=== PATIENT | male | born 1985 | race Caucasian/White ===

== ENCOUNTER 2021-05-10 18:51 | Observation (INO) ==
[2021-05-10 22:52] VITALS: TEMP 98
[2021-05-10 23:07] VITALS: O2SAT 98
[2021-05-10] MEDS ORDERED: Ondansetron 4 MG/2 ML VIAL IVP PRN (23:33)
[2021-05-10] MEDS ORDERED: Naloxone 0.4 MG/ML INJ IVP PRN (23:33)
[2021-05-10] MEDS ORDERED: *HR* Promethazine 25 MG/ML VIAL IM PRN (23:33)
[2021-05-10] MEDS ORDERED: Melatonin 3 MG TABLET PO PRN (23:33)
[2021-05-10] MEDS ORDERED: Acetaminophen 325 MG TABLET PO PRN (23:33)
[2021-05-11 00:47] LABS: Basophils % 0.5 %; Eosinophils % 0.4 %; Hematocrit 40.5 % (37.5-50.1); Hemoglobin 13.8 g/dL (12.9-16.9); Immature Granulocytes % 0.2 % (0-4); Lymphocytes # 2.4 K/mcL (0.6-4.6); Lymphocytes % 28.5 %; Mean Corpuscular HGB Conc 34.1 g/dL (31.6-35.5); Mean Corpuscular Hemoglobin 30.3 pg (28.0-33.3); Mean Platelet Volume 9.6 fL (9.4-12.4); Monocytes # 0.5 K/mcL (0.0-1.3); Monocytes % 6.5 %; Neutrophils # 5.3 K/mcL (1.6-8.9); Platelet Count 278 K/mcL (140-400); Red Blood Count 4.55 M/mcL (4.19-5.50); Red Cell Distribution Width 12.4 % (11.5-14.5); Segmented Neutrophils % 63.9 %; White Blood Count 8.3 K/mcL (4.3-11.1)
[2021-05-11 01:18] LABS: BUN/Creatinine Ratio 12 (6-26); Blood Urea Nitrogen 11 mg/dL (6-20); Calcium 9.4 mg/dL (8.6-10.3); Carbon Dioxide 22 mEq/L (23-29); Chloride 103 mEq/L (98-107); Chol/HDL Ratio 4.2 (0-4.9); Cholesterol 189 mg/dL (< 200); Glucose 102 mg/dL (70-105); HDL Cholesterol 45 mg/dL (40-59); LDL Cholesterol,Calculated 124 mg/dL (< 100); Magnesium 1.9 mg/dL (1.6-2.6); Osmolality,Calculated 280 (280-300); Potassium 3.6 mEq/L (3.5-5.1); Sodium 135 mEq/L (136-145); Triglycerides 100 mg/dL (< 150); eGFR For African Americans > 60 (> 60); eGFR For Non-African Americans > 60 (> 60)
[2021-05-11] MEDS ORDERED: Regadenoson 0.4 MG/5 ML SYRINGE IVP ONE (06:26)
[2021-05-11] MEDS ORDERED: Aspirin Enteric Coated 81 MG Tablet PO SCH (09:00)
[2021-05-11] MEDS ORDERED: Perflutren Lipid Microsphere 1.3 ML in 0.9 % Sodium Chloride 8.7 ML IVP PRN (10:42)
[2021-05-11] MEDS ORDERED: Heparin 1,000 UNITS/500 mL 500 ML ONE (12:23)
[2021-05-11] MEDS ORDERED: 0.9 % Sodium Chloride 1,000 ML ONE (12:23)
[2021-05-11] MEDS ORDERED: *HR* Heparin 10,000 UNIT/10 ML VIAL ONE (12:24)
[2021-05-11] MEDS ORDERED: Nitroglycerin 1,000 MCG/5 ML VIAL IV ONE (12:24)
[2021-05-11] MEDS ORDERED: ISOVUE-370 200 ML INFUS..BTL ONE (12:24)
[2021-05-11] MEDS ORDERED: *HR* Midazolam HCl 2 MG/2 ML VIAL ONE (13:10)
[2021-05-11] MEDS ORDERED: *HR* FentaNYL (PF) 100 MCG/2 ML VIAL ONE (13:10)
[2021-05-11 15:39] VITALS: BP 122/77; PULSE 55
== END 2021-05-11 18:31 | disposition home or self-care (01) ==
LOC: 2NENU → SUATTDRO 22:18
PROVIDERS: ADMIT Student in an Organized Health Care Education/Training Program; ATTEND Internal Medicine